=== PATIENT | male | born 1985 | race Caucasian/White ===

== ENCOUNTER 2017-10-11 15:48 | Emergency (ER) | payer SELFPAY ==
[~2017-10-11] VITALS: Ht 182.9 cm; Wt 102.1 kg
[2017-10-11] MEDS ORDERED: ASPIRIN 81 MG CHEW (CHILDREN'S ASA) PO ONE (16:00)
[2017-10-11] MEDS ORDERED: ONDANSETRON 4 MG/2 ML (SDV) Z0FRAN IVP ONE (16:15)
[2017-10-11 16:24] LABS: BASOPHILS # (AUTO) 0.1 10^3/uL (0.0-0.1); BASOPHILS % (AUTO) 1 % (0-10); EOSINOPHILS # (AUTO) 0.2 10^3/uL (0.0-0.3); EOSINOPHILS % (AUTO) 3 % (0-10); HEMATOCRIT 42 % (40-54); HEMOGLOBIN 14.4 G/DL (13.3-17.7); LYMPHOCYTES # (AUTO) 1.9 X 10^3 (1.0-4.0); LYMPHOCYTES % (AUTO) 28 % (12-44); MEAN CORPUSCULAR HEMOGLOBIN 34 PG (25-34); MEAN CORPUSCULAR HGB CONC 34 G/DL (32-36); MEAN CORPUSCULAR VOLUME 98 FL (80-99); MEAN PLATELET VOLUME 10.6 FL (7.4-10.4); MONOCYTES # (AUTO) 1.1 X 10^3 (0.0-1.0); MONOCYTES % (AUTO) 16 % (0-12); NEUTROPHILS # (AUTO) 3.5 X 10^3 (1.8-7.8); NEUTROPHILS % (AUTO) 52 % (42-75); PLATELET COUNT 187 10^3/uL (130-400); RED BLOOD COUNT 4.29 10^6/uL (4.35-5.85); RED CELL DISTRIBUTION WIDTH 14.3 % (10.0-14.5); WHITE BLOOD COUNT 6.7 10^3/uL (4.3-11.0)
[2017-10-11 16:36] LABS: ALANINE AMINOTRANSFERASE 157 U/L (0-55); ALBUMIN 4.1 GM/DL (3.2-4.5); ALKALINE PHOSPHATASE 81 U/L (40-136); BILIRUBIN,TOTAL 0.8 MG/DL (0.1-1.0); BUN/CREATININE RATIO 14; CARBON DIOXIDE 27 MMOL/L (21-32); CHLORIDE 105 MMOL/L (98-107); CREATININE SERUM 0.77 MG/DL (0.60-1.30); GFR ESTIMATED > 60; GLUCOSE 102 MG/DL (70-105); MAGNESIUM 2.3 MG/DL (1.8-2.4); POTASSIUM 3.7 MMOL/L (3.6-5.0); SODIUM 140 MMOL/L (135-145); TOTAL PROTEIN 6.9 GM/DL (6.4-8.2)
--- NOTE | 2017-10-11 16:46 | ED Chest Pain ---
General Chief Complaint: Chest Pain Stated Complaint: CHEST PAIN Source: patient Exam Limitations: no limitations History of Present Illness Date Seen by Provider: Oct 11, 2017 Time Seen by Provider: 16:43 Initial Comments The patient is a 31-year-old white male who presents with a chief complaint of low substernal chest pain. This came on this morning. It is without radiation. He and a alban have been drinking 2-3 L of alcohol per day for about 3 months. He last had a drink last night. He is attempting to self withdraw. He reports that he had gone for 3 months without alcohol while in [place] last year. His girlfriend convinced him to come back to this area. She later left him and he went back to drinking. He has also felt nauseated and sweaty today. Timing/Duration: 4-6 hours Severity/Quality: moderate Location: substernal, central, epigastric Radiation: no radiation Activities at Onset: none Prior CP/Workup: no prior chest pain Allergies and Home Medications Allergies Coded Allergies: No Known Drug Allergies (Unverified , 10/11/17) Patient Home Medication List Home Medication List Reviewed: Yes Review of Systems Constitutional: see HPI EENTM: No Symptoms Reported Respiratory: No Symptoms Reported Cardiovascular: See HPI, Chest Pain Gastrointestinal: No Symptoms Reported Genitourinary: No Symptoms Reported Musculoskeletal: no symptoms reported Skin: no symptoms reported Psychiatric/Neurological: No Symptoms Reported Endocrine: No Symptoms Reported Hematologic/Lymphatic: No Symptoms Reported Past Avrgcog-Ncvpnv-Vbhltw Hx Patient Social History Alcohol Use: Regular Use Number of Drinks Today: 0 Recreational Drug Use: No Smoking Status: Current Everyday Smoker Type Used: Cigarettes 2nd Hand Smoke Exposure: Yes Recent Foreign Travel: No Contact w/Someone Who Travel: No Recent Hopitalizations: No Physical Abuse: No Sexual Abuse: No Seasonal Allergies Seasonal Allergies: No Past Medical History Surgeries: No Respiratory: No Cardiac: No Neurological: No Genitourinary: No Gastrointestinal: Yes Hiatal Hernia Musculoskeletal: No Endocrine: No HEENT: No Cancer: No Psychosocial: No Nursing Suicide Risk Score: 0 Integumentary: No Blood Disorders: No Physical Exam Vital Signs Vital Signs - First Documented 10/11/17 10/11/17 15:54 16:00 Temp 98.0 Pulse 87 Resp 20 B/P (MAP) 153/102 (119) Pulse Ox 99 O2 Delivery Room Air Capillary Refill : Height, Weight, BMI Height: '" Weight: lbs. oz. kg; BMI Method: General Appearance: Mild Distress, Other (skin damp) HEENT: Normal ENT Inspection Neck: Full Range of Motion, Normal Inspection Respiratory: Chest Non Tender, Lungs Clear, Normal Breath Sounds, No Accessory Muscle Use, No Respiratory Distress Cardiovascular: Regular Rate, Rhythm, No Edema, No Gallop, No JVD, No Murmur, Normal Peripheral Pulses Gastrointestinal: Normal Bowel Sounds, No Organomegaly, No Pulsatile Mass, Non Tender Extremity: Normal Capillary Refill, Normal Inspection, Normal Range of Motion, Non Tender, No Calf Tenderness, No Pedal Edema Neurologic/Psychiatric: Alert, Oriented x3, No Motor/Sensory Deficits, Normal Mood/Affect Skin: Normal Color, Warm/Dry Lymphatic: No Adenopathy Progress/Results/Core Measures Results/Orders Lab Results Laboratory Tests Test 10/11/17 16:10 Range/Units White Blood Count 6.7 4.3-11.0 10^3/uL Red Blood Count 4.29 L 4.35-5.85 10^6/uL Hemoglobin 14.4 13.3-17.7 G/DL Hematocrit 42 40-54 % Mean Corpuscular Volume 98 80-99 FL Mean Corpuscular Hemoglobin 34 25-34 PG Mean Corpuscular Hemoglobin Concent 34 32-36 G/DL Red Cell Distribution Width 14.3 10.0-14.5 % Platelet Count 187 130-400 10^3/uL Mean Platelet Volume 10.6 H 7.4-10.4 FL Neutrophils (%) (Auto) 52 42-75 % Lymphocytes (%) (Auto) 28 12-44 % Monocytes (%) (Auto) 16 H 0-12 % Eosinophils (%) (Auto) 3 0-10 % Basophils (%) (Auto) 1 0-10 % Neutrophils # (Auto) 3.5 1.8-7.8 X 10^3 Lymphocytes # (Auto) 1.9 1.0-4.0 X 10^3 Monocytes # (Auto) 1.1 H 0.0-1.0 X 10^3 Eosinophils # (Auto) 0.2 0.0-0.3 10^3/uL Basophils # (Auto) 0.1 0.0-0.1 10^3/uL Prothrombin Time 13.3 12.2-14.7 SEC INR Comment 1.0 0.8-1.4 Activated Partial Thromboplast Time 25 24-35 SEC Sodium Level 140 135-145 MMOL/L Potassium Level 3.7 3.6-5.0 MMOL/L Chloride Level 105 98-107 MMOL/L Carbon Dioxide Level 27 21-32 MMOL/L Anion Gap 8 5-14 MMOL/L Blood Urea Nitrogen 11 7-18 MG/DL Creatinine 0.77 0.60-1.30 MG/DL Estimat Glomerular Filtration Rate > 60 BUN/Creatinine Ratio 14 Glucose Level 102 70-105 MG/DL Calcium Level 10.0 8.5-10.1 MG/DL Magnesium Level 2.3 1.8-2.4 MG/DL Total Bilirubin 0.8 0.1-1.0 MG/DL Aspartate Amino Transf (AST/SGOT) 114 H 5-34 U/L Alanine Aminotransferase (ALT/SGPT) 157 H 0-55 U/L Alkaline Phosphatase 81 40-136 U/L Myoglobin 20.0 10.0-92.0 NG/ML Troponin I < 0.30 <0.30 NG/ML Total Protein 6.9 6.4-8.2 GM/DL Albumin 4.1 3.2-4.5 GM/DL My Orders Orders - RADAMES ADAME MD Alcohol (10/11/17 16:47) Cbc With Automated Diff (10/11/17 16:47) Comprehensive Metabolic Panel (10/11/17 16:47) Troponin I (10/11/17 16:47) Medications Given in ED Current Medications Medications Dose Ordered Sig/Ashley Route Start Time Stop Time Status Last Admin Dose Admin Aspirin 324 mg ONCE ONCE PO 10/11/17 16:00 10/11/17 16:01 DC 10/11/17 16:24 324 MG Ondansetron HCl 8 mg ONCE ONCE IVP 10/11/17 16:15 10/11/17 16:16 DC 10/11/17 16:24 8 MG Vital Signs/I&O 10/11/17 10/11/17 15:54 16:00 Temp 98.0 Pulse 87 Resp 20 B/P (MAP) 153/102 (119) Pulse Ox 99 99 O2 Delivery Room Air Departure Communication (Admissions) CBC was normal. Pro time was normal. Chemistries showed elevation of AST and ALT at about 4 times normal. This is consistent with alcoholic hepatitis Impression Primary Impression: alcohol withdrawal symptoms Disposition: 01 HOME, SELF-CARE Condition: Stable/Unchanged Departure-Patient Inst. Decision time for Depature: 17:55 Referrals: NO,LOCAL PHYSICIAN (PCP) Primary Care Physician Patient Instructions: Chest Pain That Is Not Caused by the Heart (DC) Add. Discharge Instructions: All discharge instructions reviewed with patient and/or family. Voiced understanding. Avoid further ingestion of alcohol. Plenty of liquids. Ativan has been prescribed to help you avoid withdrawal shakes and sweats. Scripts Lorazepam (Ativan) 2 Mg Tablet 2 MG PO every 4 hours, #25 TAB Prov: RADAMES ADAME MD 10/11/17 RADAMES ADAME MD Oct 11, 2017 16:46
[2017-10-11 16:47] LABS: PROTHROMBIN TIME PATIENT 13.3 SEC (12.2-14.7)
--- NOTE | 2017-10-11 16:52 | Diagnostic Imaging Report ---
INDICATION: Chest pain. Frontal chest obtained at 4:42 p.m. FINDINGS: Heart and mediastinal silhouette are normal in appearance. The lungs are clear. There is no pneumothorax or pleural fluid. IMPRESSION: Negative chest. Dictated by: Dictated on workstation # [id number]
[2017-10-11] MEDS ORDERED: LORA-407 PO (17:57)
[2017-10-11 18:00] VITALS: BP 127/95
--- OUTSIDE RECORDS SUMMARY | 2017-10-12 00:25 | XMS REPORT ---
Author Author SILVESTRE DUEÑAS [facility] [address] Address [address] [place] [address] Care Team Providers Care Assistant Family Teacher Name Role Phone SILVESTRE DUEÑAS Unavailable PROBLEMS Type Condition ICD9-CM Code [id number] Code Onset Dates Condition Status SNOMED Code Problem Nicotine dependence F17.200 Active 23112707 Assessment Reactive depression F32.9 Feb, Active 19162887 Problem Reactive depression F32.9 Active 57657179 Problem Lumbago with sciatica, left side M54.42 Active 466649127 Problem Back pain M54.9 Active 108095571 Problem GERD (gastroesophageal reflux disease) K21.9 Active 783619241 Problem Lumbago with sciatica, right side M54.41 Active 537295987 Problem Other chronic pain G89.29 Active 64720666 ALLERGIES Substance Reaction Event Type Date Status N.K.D.A. Unknown Non Drug Allergy Feb, Unknown SOCIAL HISTORY No smoking Hx information available PLAN OF CARE VITAL SIGNS Height 72 in 2016-02-14 Weight 241.1 lbs 2016-02-14 Heart Rate 92 bpm 2016-02-14 Respiratory Rate 20 2016-02-14 BMI 32.70 kg/m2 2016-02-14 Blood pressure systolic 143 mmHg 2016-02-14 Blood pressure diastolic 76 mmHg 2016-02-14 MEDICATIONS Medication Instructions Dosage Frequency Start Date End Date Duration Status Mobic 15 MG Orally Once a day, pc 1 tablet Jun, Active Quetiapine Fumarate 200 mg Orally Once a day 1 tablet at bedtime 24h Feb Active Gabapentin 300 MG Orally 4 times a day 1 tablet 6h Active Protonix 40 MG Orally Once a day 1 tablet 24h Active Celexa 20 MG Orally Once a day 1 tablet 24h Active RESULTS No Results PROCEDURES Procedure Date Ordered Related Diagnosis Body Site Office Visit, Est Pt., Level 3 Feb 14, 2016 IMMUNIZATIONS No Known Immunizations
--- OUTSIDE RECORDS SUMMARY | 2017-10-12 00:25 | XMS REPORT ---
Author Author SILVESTRE DUEÑAS Organization [facility] Address [address] [place] [address] Care Team Providers Care Licensed Journeyman Electrician Name Role Phone SILVESTRE DUEÑAS Unavailable PROBLEMS Type Condition ICD9-CM Code [id number] Code Onset Dates Condition Status SNOMED Code Problem Back pain M54.9 Active 466182405 Problem GERD (gastroesophageal reflux disease) K21.9 Active 664236568 Problem Nicotine dependence F17.200 Active 26228166 Problem Bipolar affective disorder, currently depressed, moderate F31.32 Active 160498221 Problem Alcohol use disorder, severe, dependence F10.20 Active 168907728 Problem Lumbago with sciatica, right side M54.41 Active 868181403 Problem Lumbago with sciatica, left side M54.42 Active 703941521 Problem Reactive depression F32.9 Active 33845758 Problem Other chronic pain G89.29 Active 10413115 ALLERGIES No Information ENCOUNTERS Encounter Location Date Diagnosis [facility] [id number] [place] [phone] May, Alcohol use disorder, severe, dependence F10.20 and Bipolar affective disorder, currently depressed, moderate F31.32 [facility] [id number] [place] [phone] May, [facility] [id number] [place] [phone] Feb, Dry skin L85.3 [facility] [id number] [place] [phone] Feb, Reactive depression F32.9 ; Lumbago with sciatica, left side M54.42 ; Lumbago with sciatica, right side M54.41 ; Other chronic pain G89.29 and Back pain M54.9 [facility] [address] [facility] [id number] [place] [address] Jun, 2015 Back pain M54.9 ; GERD (gastroesophageal reflux disease) K21.9 and Nicotine dependence F17.200 [facility] [address] [facility] [id number] [place] [address] Jun, Dental examination Z01.20 and Dental caries K02.9 IMMUNIZATIONS No Known Immunizations SOCIAL HISTORY Never Assessed REASON FOR VISIT EtOH abuse PLAN OF CARE VITAL SIGNS MEDICATIONS No Known Medications RESULTS No Results PROCEDURES No Known procedures INSTRUCTIONS MEDICATIONS ADMINISTERED No Known Medications MEDICAL (GENERAL) HISTORY Type Description Date Medical History Anxiety Medical History Insomnia Medical History Alcohol Abuse Hospitalization History [facility] 2006 Hospital[facility] Hospital[facility] History alcohol withdrawal
--- OUTSIDE RECORDS SUMMARY | 2017-10-12 00:25 | XMS REPORT ---
Author Author JACKELINE VALDEZ Organization [facility] Address [address] [place] [address] Care Team Providers Care Recovery Unit Operator Name Role Phone JACKELINE VALDEZ Unavailable PROBLEMS Type Condition ICD9-CM Code [id number] Code Onset Dates Condition Status SNOMED Code Problem Nicotine dependence F17.200 Active 54117196 Problem Reactive depression F32.9 Active 57698272 Problem Lumbago with sciatica, left side M54.42 Active 028822340 Problem Back pain M54.9 Active 294332239 Problem GERD (gastroesophageal reflux disease) K21.9 Active 777991105 Problem Lumbago with sciatica, right side M54.41 Active 362316521 Problem Other chronic pain G89.29 Active 43591061 ALLERGIES Substance Reaction Event Type Date Status N.K.D.A. Unknown Non Drug Allergy Feb, Unknown SOCIAL HISTORY No smoking Hx information available PLAN OF CARE Activity Details Follow Up prn Reason: VITAL SIGNS Height 72 in 2016-02-29 Weight 252.0 lbs 2016-02-29 Temperature 97.6 degrees Fahrenheit 2016-02-29 Heart Rate 88 bpm 2016-02-29 Respiratory Rate 20 2016-02-29 BMI 34.17 kg/m2 2016-02-29 Blood pressure systolic 142 mmHg 2016-02-29 Blood pressure diastolic 82 mmHg 2016-02-29 MEDICATIONS Medication Instructions Dosage Frequency Start Date End Date Duration Status Gabapentin 300 MG Orally 4 times a day 1 tablet 6h Active Quetiapine Fumarate 200 mg Orally Once a day 1 tablet at bedtime 24h Feb Active Mobic 15 MG Orally Once a day, pc 1 tablet Jun, Active Celexa 20 MG Orally Once a day 1 tablet 24h Active RESULTS No Results PROCEDURES Procedure Date Ordered Related Diagnosis Body Site Office Visit, Est Pt., Level 3 Feb 29, 2016 IMMUNIZATIONS No Known Immunizations
--- OUTSIDE RECORDS SUMMARY | 2017-10-12 00:25 | XMS REPORT ---
Author Author SILVESTRE DUEÑAS [facility] [employer] Address Unknown Phone Unavailable Care Team Providers Care Mixer Helper Name Role Phone SILVESTRE DUEÑAS CP Unavailable Allergies, Adverse Reactions, Alerts Substance Reaction Event Type N.K.D.A. Info Not Available Non Drug Allergy Problems Problem Type Condition Code Onset Dates Condition Status Problem GERD (gastroesophageal reflux disease) K21.9 Active Problem Nicotine dependence F17.200 Active Problem Back pain M54.9 Active Assessment Nicotine dependence F17.200 Active Assessment Back pain M54.9 Active Assessment GERD (gastroesophageal reflux disease) K21.9 Active Medications Medication Code System Code Instructions Start Date End Date Status Dosage Celexa [facility] [address]-10 20 MG Orally Once a day 1 tablet Ambien [facility] [address]-17 10 MG Orally Once a day 1 tablet at bedtime as needed Mobic [facility] [address]-58 15 MG Orally Once a day, pc June 28, 2015 1 tablet Omeprazole [facility] [address]-34 40 mg Orally Once a day, ac June 28, 2015 1 capsule Klonopin [facility] [address]-94 1 MG Orally Twice a day 1 tablet Procedures Procedure Coding System Code Date VENIPUNCT, ROUTINE* CPT-4 03241 June 28, 2015 Office Visit, Est Pt., Level 3 CPT-4 38225 June 28, 2015 COMPREHEN METABOLIC PANEL CPT-4 06321 June 28, 2015 Vital Signs Date/Time: June 28, 2015 Temperature 98.6 F Weight 262 lbs Height 72 in BMI 35.53 Index Blood Pressure Diastolic 88 mmHg Blood Pressure Systolic 148 mmHg Cardiac Monitoring Heart Rate 78 bpm Results No Known Results Summary Purpose eClinicalWorks Submission
== END 2017-10-11 18:05 | disposition home or self-care (01) ==
LOC: ER 15:51
DX: F10.239 Alcohol dependence with withdrawal, unspecified (principal); F17.210 Nicotine dependence, cigarettes, uncomplicated; Z87.19 Personal history of other diseases of the digestive system
CPT/HCPCS: 36415; 71045; 80053; 83735; 83874; 84484; 85025; 85610; 85730; 93005; 93041; 96374